=== PATIENT | female | born 1950 | race African-American/Black ===

== ENCOUNTER 2023-10-28 13:32 | Inpatient (IN) | payer OTHER ==
[2023-10-28 15:46] LABS: BASO % 0.7 % (0-2.0); EOS % 0.9 % (0-4.5); HEMATOCRIT 38.2 % (32.4-45.2); HEMOGLOBIN 12.8 GM/dL (10.7-15.3); LYMPH % 26.5 % (8-40); MCH 30.6 pg (25.7-33.7); MCHC 33.6 g/dl (32.0-36.0); MEAN CELL VOLUME 91.3 fl (80-96); MEAN PLT VOLUME 7.2 fl (7.5-11.1); MONO % 10.8 % (3.8-10.2); NEUT % 61.1 % (42.8-82.8); PLATELET COUNT 353 10^3/uL (134-434); RBC 4.19 M/mm3 (3.60-5.2); RDW 13.7 % (11.6-15.6); WHITE BLOOD COUNT 9.1 K/mm3 (4.0-10.0)
[2023-10-28 15:54] LABS: INR 1.08 (0.83-1.09); PROTHROMBIN TIME (PATIENT) 12.5 SEC (9.7-13.0)
[2023-10-28 15:57] LABS: ACTIVATED PTT 27.2 SECONDS (25.2-36.5)
[2023-10-28 16:08] LABS: POTASSIUM 4.1 mmol/L (3.5-5.1)
[2023-10-28 16:11] LABS: ALBUMIN 3.6 g/dl (3.4-5.0)
[2023-10-28 16:12] LABS: CALCIUM 10.4 mg/dL (8.5-10.1)
[2023-10-28 16:13] LABS: BLOOD UREA NITROGEN 23.6 mg/dL (7-18); MAGNESIUM 2.3 mg/dL (1.8-2.4)
[2023-10-28 16:16] LABS: CREATININE 0.8 mg/dL (0.55-1.3)
[2023-10-28 16:17] LABS: BILIRUBIN,TOTAL 0.4 mg/dL (0.2-1); TOT PROT 7.4 g/dl (6.4-8.2)
[2023-10-28] MEDS ORDERED: HALOPERIDOL LACTATE 5 MG/ML ONE (17:12)
[2023-10-28] MEDS: HALOPERIDOL LACTATE 5 MG/ML IM ONE (17:17)
[2023-10-28] MEDS: SODIUM CHLORIDE 1,000 ML IV STA (19:59)
[2023-10-28] MEDS: REMDESIVIR 200 MG in SODIUM CHLORIDE 250 ML IVPB ONE (20:00)
[2023-10-28] MEDS ORDERED: ACETAMINOPHEN 325 MG TABLET (FP) PO PRN (21:41)
[2023-10-28] MEDS ORDERED: MAGNESIUM HYDROX 2400MG/30ML ORAL SUSPENSION 30 ML CUP PO PRN (21:41)
[2023-10-28] MEDS: SODIUM CHLORIDE 1,000 ML IV SCH (22:07)
[2023-10-28] MEDS: MIRTAZAPINE 15 MG TABLET (FP) PO SCH (22:37)
[2023-10-28] MEDS: NAPH,MB-DB/K PH,MBDB POWDER PACKET PO SCH (22:37)
[2023-10-28] MEDS: risperiDONE 0.5 MG TABLET PO SCH (22:37)
[2023-10-28] MEDS: QUEtiapine FUMARATE 25 MG TABLET PO SCH (22:37)
[2023-10-29] MEDS: HALOPERIDOL LACTATE 5 MG/ML IM ONE (02:07)
[2023-10-29 03:15] LABS: URINE APPEARANCE CLEAR; URINE BILIRUBIN NEGATIVE (NEGATIVE); URINE COLOR YELLOW; URINE GLUCOSE (UA) NEGATIVE (NEGATIVE); URINE KETONE NEGATIVE (NEGATIVE); URINE LEUK ESTERASE NEGATIVE (NEGATIVE); URINE NITRITE NEGATIVE (NEGATIVE); URINE PROTEIN NEGATIVE (NEGATIVE)
[2023-10-29 06:33] LABS: BASO % 0.4 % (0-2.0); EOS % 1.3 % (0-4.5); HEMATOCRIT 36.8 % (32.4-45.2); HEMOGLOBIN 12.2 GM/dL (10.7-15.3); LYMPH % 24.5 % (8-40); MCH 30.7 pg (25.7-33.7); MCHC 33.1 g/dl (32.0-36.0); MEAN CELL VOLUME 92.9 fl (80-96); MEAN PLT VOLUME 7.6 fl (7.5-11.1); MONO % 7.9 % (3.8-10.2); NEUT % 65.9 % (42.8-82.8); PLATELET COUNT 302 10^3/uL (134-434); RBC 3.96 M/mm3 (3.60-5.2); RDW 13.6 % (11.6-15.6)
[2023-10-29 06:39] LABS: POTASSIUM 3.7 mmol/L (3.5-5.1)
[2023-10-29 06:42] LABS: ALBUMIN 3.4 g/dl (3.4-5.0); BLOOD UREA NITROGEN 15.7 mg/dL (7-18); MAGNESIUM 2.2 mg/dL (1.8-2.4)
[2023-10-29 06:45] LABS: CREATININE 0.6 mg/dL (0.55-1.3); PHOSPHOROUS 2.7 mg/dL (2.5-4.9)
[2023-10-29 06:46] LABS: BILIRUBIN,TOTAL 0.4 mg/dL (0.2-1)
[2023-10-29 06:47] LABS: TOT PROT 6.7 g/dl (6.4-8.2)
[2023-10-29 07:23] LABS: CALCIUM 8.6 mg/dL (8.5-10.1)
[2023-10-29] MEDS ORDERED: CHOLECALCIFEROL (VIT D3) 1,000 UNIT (25 MCG) TABLET PO SCH (10:00)
[2023-10-29] MEDS ORDERED: amLODIPine BESYLATE 10 MG TABLET (FP) PO SCH (10:00)
[2023-10-29] MEDS: ENOXAPARIN NA (PORCINE) 40 MG/0.4 ML DISP.SYRIN SQ SCH (11:12)
[2023-10-29] MEDS: CHOLECALCIFEROL (VIT D3) 1,000 UNIT (25 MCG) TABLET PO SCH (11:12)
[2023-10-29] MEDS ORDERED: ROSUVASTATIN CA 40 MG TABLET PO ONE (12:16)
[2023-10-29] MEDS ORDERED: ASPIRIN 81 MG CHEWABLE TABLETS ONE (14:35)
[2023-10-29] MEDS ORDERED: ROSUVASTATIN CA 20 MG TABLET ONE (14:35)
[2023-10-29] MEDS: ASPIRIN COATED 81 MG TABLET.EC PO SCH (14:36)
[2023-10-29] MEDS: ROSUVASTATIN CA 20 MG TABLET PO ONE (14:36)
[2023-10-29] MEDS ORDERED: ATORVASTATIN CA 40 MG TABLET (FP) PO ONE (15:10)
[2023-10-29] MEDS: amLODIPine BESYLATE 10 MG TABLET (FP) PO SCH (17:37)
[2023-10-29] MEDS: SODIUM CHLORIDE 1,000 ML IV SCH (19:00)
[2023-10-29] MEDS: ATORVASTATIN CA 40 MG TABLET (FP) PO ONE (19:01)
[2023-10-29] MEDS: HEPARIN NA (PORCINE) 5,000 UNITS/ML 1ML VIAL SQ SCH (22:36)
[2023-10-29] MEDS: QUEtiapine FUMARATE 25 MG TABLET PO SCH (22:37)
[2023-10-29] MEDS: MIRTAZAPINE 15 MG TABLET (FP) PO SCH (22:37)
[2023-10-29] MEDS: NAPH,MB-DB/K PH,MBDB POWDER PACKET PO SCH (22:41)
[2023-10-29] MEDS: risperiDONE 0.5 MG TABLET PO SCH (22:41)
[2023-10-30 08:32] LABS: BASO % 0.6 % (0-2.0); EOS % 2.2 % (0-4.5); HEMATOCRIT 40.4 % (32.4-45.2); LYMPH % 31.1 % (8-40); MCH 31.4 pg (25.7-33.7); MCHC 34.6 g/dl (32.0-36.0); MEAN CELL VOLUME 90.5 fl (80-96); MEAN PLT VOLUME 7.7 fl (7.5-11.1); MONO % 8.3 % (3.8-10.2); NEUT % 57.8 % (42.8-82.8); PLATELET COUNT 323 10^3/uL (134-434); RBC 4.47 M/mm3 (3.60-5.2); RDW 13.7 % (11.6-15.6)
[2023-10-30 08:39] LABS: POTASSIUM 3.7 mmol/L (3.5-5.1)
[2023-10-30 08:58] LABS: ALBUMIN 3.6 g/dl (3.4-5.0); MAGNESIUM 2.4 mg/dL (1.8-2.4)
[2023-10-30 09:02] LABS: CREATININE 0.6 mg/dL (0.55-1.3); PHOSPHOROUS 2.7 mg/dL (2.5-4.9)
[2023-10-30 09:03] LABS: TOT PROT 7.3 g/dl (6.4-8.2)
[2023-10-30 09:04] LABS: BILIRUBIN,TOTAL 0.6 mg/dL (0.2-1)
[2023-10-30] MEDS: ASPIRIN COATED 81 MG TABLET.EC PO SCH (09:25)
[2023-10-30] MEDS: amLODIPine BESYLATE 10 MG TABLET (FP) PO SCH (09:26)
[2023-10-30] MEDS: REMDESIVIR 100 MG in SODIUM CHLORIDE 250 ML IVPB SCH (09:26)
[2023-10-30] MEDS: CHOLECALCIFEROL (VIT D3) 1,000 UNIT (25 MCG) TABLET PO SCH (09:26)
[2023-10-30] MEDS ORDERED: REMDESIVIR 100 MG in SODIUM CHLORIDE 250 ML IVPB SCH (10:00)
[2023-10-31 08:01] LABS: POTASSIUM 3.9 mmol/L (3.5-5.1)
[2023-10-31 08:03] LABS: BLOOD UREA NITROGEN 19.2 mg/dL (7-18); MAGNESIUM 2.3 mg/dL (1.8-2.4)
[2023-10-31 08:04] LABS: ALBUMIN 3.6 g/dl (3.4-5.0)
[2023-10-31 08:06] LABS: CREATININE 0.7 mg/dL (0.55-1.3)
[2023-10-31 08:08] LABS: BILIRUBIN,TOTAL 0.4 mg/dL (0.2-1); TOT PROT 7.7 g/dl (6.4-8.2)
[2023-10-31 08:09] LABS: BASO % 0.3 % (0-2.0); HEMATOCRIT 39.7 % (32.4-45.2); HEMOGLOBIN 13.5 GM/dL (10.7-15.3); LYMPH % 20.3 % (8-40); MCH 31.1 pg (25.7-33.7); MCHC 34.1 g/dl (32.0-36.0); MEAN CELL VOLUME 91.2 fl (80-96); MONO % 8.9 % (3.8-10.2); NEUT % 69.5 % (42.8-82.8); PLATELET COUNT 365 10^3/uL (134-434); RBC 4.35 M/mm3 (3.60-5.2); RDW 13.6 % (11.6-15.6); WHITE BLOOD COUNT 10.8 K/mm3 (4.0-10.0)
[2023-10-31 08:14] LABS: CALCIUM 10.6 mg/dL (8.5-10.1)
[2023-10-31] MEDS: ACETAMINOPHEN 325 MG TABLET (FP) PO PRN (09:09)
[2023-10-31] MEDS ORDERED: INSULIN (NOVOLOG) ASPART 100 UNITS/ML 10ML VIAL ONE (19:42)
[2023-10-31] MEDS: SODIUM CHLORIDE 1,000 ML IV SCH (22:31)
[2023-10-31 23:18] VITALS: BMI 20.2
[2023-11-01 08:19] LABS: BASO % 0.4 % (0-2.0); EOS % 1.1 % (0-4.5); HEMATOCRIT 37.1 % (32.4-45.2); HEMOGLOBIN 12.8 GM/dL (10.7-15.3); LYMPH % 19.8 % (8-40); MCHC 34.4 g/dl (32.0-36.0); MEAN CELL VOLUME 90.3 fl (80-96); MEAN PLT VOLUME 8.1 fl (7.5-11.1); MONO % 9.1 % (3.8-10.2); NEUT % 69.6 % (42.8-82.8); PLATELET COUNT 351 10^3/uL (134-434); RBC 4.11 M/mm3 (3.60-5.2); RDW 13.7 % (11.6-15.6); WHITE BLOOD COUNT 13.1 K/mm3 (4.0-10.0)
[2023-11-01 08:31] LABS: POTASSIUM 4.2 mmol/L (3.5-5.1)
[2023-11-01 08:43] LABS: CALCIUM 9.7 mg/dL (8.5-10.1)
[2023-11-01 08:44] LABS: ALBUMIN 3.2 g/dl (3.4-5.0); BLOOD UREA NITROGEN 23.4 mg/dL (7-18); MAGNESIUM 2.3 mg/dL (1.8-2.4)
[2023-11-01 08:46] LABS: CREATININE 0.8 mg/dL (0.55-1.3)
[2023-11-01 08:48] LABS: TOT PROT 6.9 g/dl (6.4-8.2)
[2023-11-01 08:49] LABS: BILIRUBIN,TOTAL 0.3 mg/dL (0.2-1)
[2023-11-01] MEDS: MAGNESIUM HYDROX 2400MG/30ML ORAL SUSPENSION 30 ML CUP PO PRN (12:27)
[2023-11-01] MEDS: ATORVASTATIN CA 80 MG TABLET (FP) PO SCH (21:18)
[2023-11-02 07:35] LABS: BASO % 0.4 % (0-2.0); EOS % 0.3 % (0-4.5); HEMATOCRIT 41.6 % (32.4-45.2); HEMOGLOBIN 14.3 GM/dL (10.7-15.3); MCH 31.2 pg (25.7-33.7); MCHC 34.4 g/dl (32.0-36.0); MEAN CELL VOLUME 90.9 fl (80-96); MEAN PLT VOLUME 8.4 fl (7.5-11.1); MONO % 7.9 % (3.8-10.2); NEUT % 76.4 % (42.8-82.8); PLATELET COUNT 359 10^3/uL (134-434); RBC 4.58 M/mm3 (3.60-5.2); WHITE BLOOD COUNT 14.6 K/mm3 (4.0-10.0)
[2023-11-02 07:58] LABS: POTASSIUM 4.3 mmol/L (3.5-5.1)
[2023-11-02 08:10] LABS: CALCIUM 9.6 mg/dL (8.5-10.1)
[2023-11-02 08:11] LABS: ALBUMIN 3.8 g/dl (3.4-5.0); BLOOD UREA NITROGEN 21.3 mg/dL (7-18); MAGNESIUM 2.4 mg/dL (1.8-2.4)
[2023-11-02 08:14] LABS: CREATININE 0.7 mg/dL (0.55-1.3); PHOSPHOROUS 3.6 mg/dL (2.5-4.9); TOT PROT 7.8 g/dl (6.4-8.2)
[2023-11-02 08:15] LABS: BILIRUBIN,TOTAL 0.6 mg/dL (0.2-1)
[2023-11-02 17:31] VITALS: RESP 19
[2023-11-02 17:33] VITALS: BP 107/64; PULSE 105; TEMP 98.1
[2023-11-06 08:05] LABS: HOMOCYSTINE-PLASMA OR SERUM SEE FILE umol/L; METHYLMALONIC ACID- SEE FILE
== END 2023-11-02 17:27 | disposition home or self-care (01) | DRG 178 ==
LOC: JER 13:32 → JERBED 18:45 → OBSVTOIN 10-29 12:15 → J8W 10-29 15:17 → J4W 10-29 17:53
PROVIDERS: ADMIT Internal Medicine; ATTEND Nurse Practitioner Acute Care
PROC: XW033E5 Introduction of Remdesivir Anti-infective into Peripheral Vein, Percutaneous Approach, New Technology Group 5 (ICD-10-PCS; principal; 2023-10-28)
DX: U07.1 COVID-19 (principal); G93.49 Other encephalopathy; E83.39 Other disorders of phosphorus metabolism; I10 Essential (primary) hypertension; F25.9 Schizoaffective disorder, unspecified; D72.829 Elevated white blood cell count, unspecified; E83.52 Hypercalcemia; F03.90 Unspecified dementia, unspecified severity, without behavioral disturbance, psychotic disturbance, mood disturbance, and anxiety; F31.9 Bipolar disorder, unspecified; S00.12XA Contusion of left eyelid and periocular area, initial encounter; W18.30XA Fall on same level, unspecified, initial encounter; Y92.098 Other place in other non-institutional residence as the place of occurrence of the external cause
CPT/HCPCS: 0241U-QW; 36415; 70450-TC; 70551-TC; 71045-TC-FY; 72125-TC; 72170-TC-FY; 80053; 80061; 81003; 82136; 83735; 83918; 83970; 84100; 84439; 84443; 84484; 85025; 85610; 85730; 87040; 87086; 93005; 93010; 93306-TC; 93880-TC; 97116-GP; 99285-25; G0378; J0248; J1644

== ENCOUNTER 2023-11-21 11:24 | Emergency (ER) | payer OTHER ==
[2023-11-21 11:57] VITALS: BMI 20.3
[2023-11-21] MEDS ORDERED: DIPHTH,PERTUSS(ACELL),TET 0.5 ML DISP.SYRIN IM ONE (13:45)
[2023-11-21] MEDS: DIPHTH,PERTUSS(ACELL),TET 0.5 ML DISP.SYRIN IM ONE (14:15)
[2023-11-21 21:04] VITALS: BP 134/78; PULSE 78; RESP 19; TEMP 98.1
== END 2023-11-21 20:59 | disposition home or self-care (01) ==
LOC: JER 11:24
PROC: 0HQ0XZZ Repair Scalp Skin, External Approach (ICD-10-PCS; principal; 2023-11-21)
PROC: 3E0234Z Introduction of Serum, Toxoid and Vaccine into Muscle, Percutaneous Approach (ICD-10-PCS; 2023-11-21)
DX: S01.111A Laceration without foreign body of right eyelid and periocular area, initial encounter (principal); W19.XXXA Unspecified fall, initial encounter; Y93.01 Activity, walking, marching and hiking; Y92.129 Unspecified place in nursing home as the place of occurrence of the external cause
CPT/HCPCS: 12011-25; 70450-TC; 70486-TC; 72125-TC; 72170-TC-FY; 90471; 90715; 93005; 93010; 99285-25

== ENCOUNTER 2024-02-01 01:56 | Observation (INO) | payer OTHER ==
[2024-02-01] MEDS ORDERED: ACETAMINOPHEN 500 MG TABLET (FP) ONE (04:38)
[2024-02-01] MEDS: ACETAMINOPHEN 500 MG TABLET (FP) PO ONE (04:50)
[2024-02-01 05:56] LABS: BASO % 0.5 % (0-2.0); EOS % 2.5 % (0-4.5); HEMATOCRIT 38.8 % (32.4-45.2); HEMOGLOBIN 12.7 GM/dL (10.7-15.3); LYMPH % 33.7 % (8-40); MCH 30.1 pg (25.7-33.7); MCHC 32.7 g/dl (32.0-36.0); MEAN PLT VOLUME 8.7 fl (7.5-11.1); MONO % 7.5 % (3.8-10.2); NEUT % 55.8 % (42.8-82.8); RBC 4.21 M/mm3 (3.60-5.2); RDW 14.5 % (11.6-15.6); WHITE BLOOD COUNT 9.2 K/mm3 (4.0-10.0)
[2024-02-01 06:15] LABS: POTASSIUM 3.8 mmol/L (3.5-5.1)
[2024-02-01 06:17] LABS: CALCIUM 9.9 mg/dL (8.5-10.1)
[2024-02-01 06:18] LABS: ALBUMIN 3.4 g/dl (3.4-5.0); BLOOD UREA NITROGEN 11.7 mg/dL (7-18); INR 1.07 (0.83-1.09); MAGNESIUM 2.1 mg/dL (1.8-2.4); PROTHROMBIN TIME (PATIENT) 12.1 SEC (9.7-13.0)
[2024-02-01 06:21] LABS: ACTIVATED PTT 30.5 SECONDS (25.2-36.5); CREATININE 0.7 mg/dL (0.55-1.3)
[2024-02-01 06:22] LABS: TOT PROT 7.2 g/dl (6.4-8.2)
[2024-02-01 06:23] LABS: BILIRUBIN,TOTAL 0.5 mg/dL (0.2-1)
[2024-02-01 09:23] LABS: PLATELET COUNT 359 10^3/uL (134-434)
[2024-02-01 09:24] LABS: EPI CELLS 1 /uL (0-25.1); HYALINE CASTS 0 /uL (0-3.1); PH,URINE 7.5 (5.0-8.0); URINE APPEARANCE CLOUDY; URINE BACTERIA 3063 /uL (0-1359); URINE BILIRUBIN NEGATIVE (NEGATIVE); URINE COLOR YELLOW; URINE GLUCOSE (UA) NEGATIVE (NEGATIVE); URINE KETONE NEGATIVE (NEGATIVE); URINE LEUK ESTERASE 3+ (NEGATIVE); URINE NITRITE NEGATIVE (NEGATIVE); URINE PROTEIN NEGATIVE (NEGATIVE); URINE UROBILINOGEN 0.2 mg/dL (0.2-1.0); URINE WBC 217 /uL (0-25.8)
[2024-02-01] MEDS ORDERED: MAGNESIUM HYDROX 2400MG/30ML ORAL SUSPENSION 30 ML CUP PO PRN (09:26)
[2024-02-01] MEDS ORDERED: ACETAMINOPHEN 325 MG TABLET (FP) PO PRN (09:27)
[2024-02-01] MEDS ORDERED: LANOLIN (EMOLL) 30 GM TUBE TP SCH (10:00)
[2024-02-01] MEDS ORDERED: hydrOXYzine PAMOATE 25 MG CAPSULE (FP) PO PRN (10:13)
[2024-02-01] MEDS ORDERED: ASPIRIN COATED 81 MG TABLET.EC ONE (10:42)
[2024-02-01] MEDS ORDERED: ASCORBIC ACID 500 MG TABLET (FP) ONE (10:42)
[2024-02-01] MEDS ORDERED: hydrOXYzine PAMOATE 25 MG CAPSULE (FP) PO ONE (10:42)
[2024-02-01] MEDS ORDERED: amLODIPine BESYLATE 10 MG TABLET (FP) ONE (10:42)
[2024-02-01] MEDS ORDERED: CHOLECALCIFEROL (VIT D3) 1,000 UNIT (25 MCG) TABLET ONE (10:42)
[2024-02-01] MEDS ORDERED: MULTIVITAMINS (DAILY MVI) TABLET (FP) ONE (10:43)
[2024-02-01] MEDS ORDERED: ENOXAPARIN NA (PORCINE) 40 MG/0.4 ML DISP.SYRIN SQ ONE (10:43)
[2024-02-01] MEDS: ASCORBIC ACID 250 MG TABLET (FP) PO SCH (10:57)
[2024-02-01] MEDS: MEMANTINE HCL 10 MG TABLET (FP) PO SCH (10:57)
[2024-02-01] MEDS: ASPIRIN COATED 81 MG TABLET.EC PO SCH (10:57)
[2024-02-01] MEDS: CHOLECALCIFEROL (VIT D3) 1,000 UNIT (25 MCG) TABLET PO SCH (10:57)
[2024-02-01] MEDS: ENOXAPARIN NA (PORCINE) 40 MG/0.4 ML DISP.SYRIN SQ SCH (10:57)
[2024-02-01] MEDS: MULTIVITAMINS (DAILY MVI) TABLET (FP) PO SCH (10:57)
[2024-02-01] MEDS: amLODIPine BESYLATE 10 MG TABLET (FP) PO SCH (10:57)
[2024-02-01 12:15] LABS: URINE RBC 72.3 /uL (0-23.9)
[2024-02-01 17:22] VITALS: BMI 17.0
[2024-02-01] MEDS: ATORVASTATIN CA 40 MG TABLET (FP) PO SCH (21:30)
[2024-02-01] MEDS: traZODone HCL 50 MG TABLET (FP) PO SCH (21:30)
[2024-02-01] MEDS: MIRTAZAPINE 15 MG TABLET (FP) PO SCH (21:30)
[2024-02-01] MEDS: risperiDONE 1 MG TABLET PO SCH (21:30)
[2024-02-02 01:20] VITALS: BP 121/80; PULSE 90; RESP 20; TEMP 98.2
[2024-02-02] MEDS: VALPROIC ACID 250 MG CAPSULE PO SCH (03:40)
[2024-02-02 08:11] LABS: BASO % 0.4 % (0-2.0); EOS % 1.7 % (0-4.5); HEMOGLOBIN 12.3 GM/dL (10.7-15.3); LYMPH % 31.3 % (8-40); MCH 30.2 pg (25.7-33.7); MCHC 33.2 g/dl (32.0-36.0); MEAN CELL VOLUME 90.9 fl (80-96); MEAN PLT VOLUME 7.8 fl (7.5-11.1); MONO % 9.3 % (3.8-10.2); NEUT % 57.3 % (42.8-82.8); PLATELET COUNT 299 10^3/uL (134-434); RBC 4.06 M/mm3 (3.60-5.2); RDW 14.1 % (11.6-15.6); WHITE BLOOD COUNT 7.1 K/mm3 (4.0-10.0)
[2024-02-02 08:29] LABS: POTASSIUM 3.8 mmol/L (3.5-5.1)
[2024-02-02 08:45] LABS: ALBUMIN 3.2 g/dl (3.4-5.0); BLOOD UREA NITROGEN 19.7 mg/dL (7-18); CALCIUM 9.4 mg/dL (8.5-10.1); MAGNESIUM 2.3 mg/dL (1.8-2.4)
[2024-02-02 08:48] LABS: BILIRUBIN,TOTAL 0.6 mg/dL (0.2-1); CREATININE 0.7 mg/dL (0.55-1.3); PHOSPHOROUS 3.7 mg/dL (2.5-4.9)
[2024-02-02 08:49] LABS: TOT PROT 6.7 g/dl (6.4-8.2)
== END 2024-02-02 11:17 ==
LOC: JER 01:56 → JERBED 07:44 → J4W 13:36
PROVIDERS: ADMIT Internal Medicine; ATTEND Internal Medicine
DX: S09.90XA Unspecified injury of head, initial encounter (principal); F31.9 Bipolar disorder, unspecified; F03.90 Unspecified dementia, unspecified severity, without behavioral disturbance, psychotic disturbance, mood disturbance, and anxiety; W18.39XA Other fall on same level, initial encounter; Y93.89 Activity, other specified; Y92.008 Other place in unspecified non-institutional (private) residence as the place of occurrence of the external cause; I10 Essential (primary) hypertension; E78.00 Pure hypercholesterolemia, unspecified
CPT/HCPCS: 36415; 70450-TC; 71045-TC-FY; 72125-TC; 80053; 81003; 82962; 83735; 84100; 84443; 84484; 85025; 85610; 85730; 86850; 86900; 86901; 87086; 87186; 93005; 93010; 97116-GP; 97161-GP; 99285-25; G0378

== ENCOUNTER 2024-04-02 10:37 | Inpatient (IN) | payer OTHER ==
[2024-04-02] MEDS ORDERED: HALOPERIDOL LACTATE 5 MG/ML ONE (11:18)
[2024-04-02] MEDS: HALOPERIDOL LACTATE 5 MG/ML IM ONE (11:23)
[2024-04-02] MEDS ORDERED: LORazepam 1 MG TABLET ONE (13:19)
[2024-04-02] MEDS: LORazepam 2 MG TABLET PO ONE (13:20)
[2024-04-02 15:56] LABS: BASO % 0.6 % (0-2.0); EOS % 0.9 % (0-4.5); HEMATOCRIT 41.8 % (32.4-45.2); HEMOGLOBIN 14.1 GM/dL (10.7-15.3); LYMPH % 22.5 % (8-40); MCHC 33.9 g/dl (32.0-36.0); MEAN CELL VOLUME 88.6 fl (80-96); MEAN PLT VOLUME 7.5 fl (7.5-11.1); MONO % 8.2 % (3.8-10.2); NEUT % 67.8 % (42.8-82.8); PLATELET COUNT 433 10^3/uL (134-434); RBC 4.72 M/mm3 (3.60-5.2); WHITE BLOOD COUNT 10.5 K/mm3 (4.0-10.0)
[2024-04-02 16:18] LABS: POTASSIUM 4.3 mmol/L (3.5-5.1)
[2024-04-02 16:19] LABS: ALBUMIN 3.1 g/dl (3.4-5.0); CALCIUM 9.3 mg/dL (8.5-10.1)
[2024-04-02 16:21] LABS: BLOOD UREA NITROGEN 16.2 mg/dL (7-18)
[2024-04-02 16:23] LABS: CREATININE 0.7 mg/dL (0.55-1.3)
[2024-04-02 16:25] LABS: BILIRUBIN,TOTAL 0.5 mg/dL (0.2-1); TOT PROT 7.7 g/dl (6.4-8.2)
[2024-04-02] MEDS ORDERED: VANCOMYCIN 1 GRAM (PRE-DOCKED) 1,000 MG/250 ML BAG IVPB ONE (18:03)
[2024-04-02] MEDS ORDERED: PIPERACILLIN/TAZOB 4.5 GM 4.5 GM/100 ML BAG IVPB ONE (18:03)
[2024-04-02] MEDS: PIPERACILLIN/TAZOB 4.5 GM 4.5 GM in DEXTROSE 5%-WATER 100 ML IVPB ONE (18:11)
[2024-04-02] MEDS: VANCOMYCIN 1,000 MG in DEXTROSE 5%-WATER - 250 ML IVPB ONE (18:37)
[2024-04-02] MEDS: HALOPERIDOL LACTATE 5 MG/ML IVPUSH PRN (18:50)
[2024-04-02] MEDS ORDERED: VANCOMYCIN/WATER FOR INJ (PEG) 750 MG/150 ML BAG IVPB SCH (20:15)
[2024-04-02] MEDS ORDERED: PATIENT'S OWN MEDICATION (NON-FORMULARY) (Valproic Acid [Valproic Acid] 250 MG Capsule) PO SCH (22:00)
[2024-04-02] MEDS: DEXTROSE 5%-LACTATED RINGERS 1,000 ML IV SCH (22:07)
[2024-04-02] MEDS ORDERED: HEPARIN NA (PORCINE) 5,000 UNITS/ML 1ML VIAL ONE (22:34)
[2024-04-02] MEDS: traZODone HCL 50 MG TABLET (FP) PO SCH (22:39)
[2024-04-02] MEDS: VALPROIC ACID 250 MG CAPSULE PO SCH (22:39)
[2024-04-02] MEDS: HEPARIN NA (PORCINE) 5,000 UNITS/ML 1ML VIAL SQ SCH (22:40)
[2024-04-02] MEDS: ATORVASTATIN CA 40 MG TABLET (FP) PO SCH (22:40)
[2024-04-02] MEDS: MEMANTINE HCL 10 MG TABLET (FP) PO SCH (22:41)
[2024-04-02] MEDS: MIRTAZAPINE 15 MG TABLET (FP) PO SCH (22:41)
[2024-04-02] MEDS: risperiDONE 1 MG TABLET PO SCH (22:41)
[2024-04-03 07:18] LABS: BASO % 0.5 % (0-2.0); EOS % 0.2 % (0-4.5); HEMATOCRIT 44.1 % (32.4-45.2); HEMOGLOBIN 14.4 GM/dL (10.7-15.3); LYMPH % 10.1 % (8-40); MCH 29.5 pg (25.7-33.7); MCHC 32.6 g/dl (32.0-36.0); MEAN CELL VOLUME 90.3 fl (80-96); MEAN PLT VOLUME 7.7 fl (7.5-11.1); MONO % 7.2 % (3.8-10.2); PLATELET COUNT 453 10^3/uL (134-434); RBC 4.89 M/mm3 (3.60-5.2); RDW 13.8 % (11.6-15.6); WHITE BLOOD COUNT 12.9 K/mm3 (4.0-10.0)
[2024-04-03] MEDS ORDERED: PIPERACILLIN/TAZOB 3.375 GM 3.375 GM/50 ML BAG IVPB ONE ×4 (07:22→22:47)
[2024-04-03 07:23] LABS: CALCIUM 10.3 mg/dL (8.5-10.1); POTASSIUM 5.1 mmol/L (3.5-5.1)
[2024-04-03 07:25] LABS: BLOOD UREA NITROGEN 10.9 mg/dL (7-18)
[2024-04-03 07:28] LABS: CREATININE 0.8 mg/dL (0.55-1.3)
[2024-04-03] MEDS: PIPERACILLIN/TAZOB 3.375 GM 3.375 GM in DEXTROSE 5%-WATER - 50 ML IVPB SCH (07:31)
[2024-04-03] MEDS: amLODIPine BESYLATE 10 MG TABLET (FP) PO SCH (10:01)
[2024-04-03] MEDS: ASPIRIN COATED 81 MG TABLET.EC PO SCH (10:01)
[2024-04-03] MEDS ORDERED: HEPARIN NA (PORCINE) 5,000 UNITS/ML 1ML VIAL ONE ×2 (10:02→22:40)
[2024-04-03] MEDS: VANCOMYCIN/WATER FOR INJ (PEG) 750 MG/150 ML BAG IVPB SCH (20:10)
[2024-04-03] MEDS ORDERED: risperiDONE 0.5 MG TABLET ONE (22:39)
[2024-04-03] MEDS ORDERED: ATORVASTATIN CA 40 MG TABLET (FP) ONE (22:39)
[2024-04-03] MEDS ORDERED: traZODone HCL 50 MG TABLET (FP) ONE (22:40)
[2024-04-03] MEDS ORDERED: ACETAMINOPHEN INJECTION 100 ML IVPB ONE (22:40)
[2024-04-03] MEDS ORDERED: MIRTAZAPINE 15 MG TABLET (FP) ONE (22:40)
[2024-04-03] MEDS ORDERED: DIVALPROEX SODIUM 250 MG TABLET E.C. ONE (22:40)
[2024-04-03] MEDS: ACETAMINOPHEN 500 MG TABLET (FP) PO SCH (22:59)
[2024-04-04] MEDS: PIPERACILLIN/TAZOB 3.375 GM 3.375 GM in DEXTROSE 5%-WATER - 50 ML IVPB SCH (11:35)
[2024-04-04 12:32] LABS: BASO % 0.5 % (0-2.0); EOS % 1.9 % (0-4.5); HEMATOCRIT 38.2 % (32.4-45.2); HEMOGLOBIN 12.9 GM/dL (10.7-15.3); MCH 29.8 pg (25.7-33.7); MCHC 33.7 g/dl (32.0-36.0); MEAN CELL VOLUME 88.6 fl (80-96); MEAN PLT VOLUME 7.6 fl (7.5-11.1); MONO % 10.6 % (3.8-10.2); PLATELET COUNT 373 10^3/uL (134-434); RBC 4.31 M/mm3 (3.60-5.2); WHITE BLOOD COUNT 10.8 K/mm3 (4.0-10.0)
[2024-04-04] MEDS: MAGNESIUM 2GM/50ML STERILE WATER IVPB IVPB ONE (12:34)
[2024-04-04 15:58] VITALS: BMI 19.8
[2024-04-05 09:28] LABS: BASO % 0.4 % (0-2.0); EOS % 3.5 % (0-4.5); HEMOGLOBIN 12.5 GM/dL (10.7-15.3); LYMPH % 30.6 % (8-40); MCH 29.5 pg (25.7-33.7); MCHC 33.7 g/dl (32.0-36.0); MEAN CELL VOLUME 87.6 fl (80-96); MEAN PLT VOLUME 7.7 fl (7.5-11.1); MONO % 11.2 % (3.8-10.2); NEUT % 54.3 % (42.8-82.8); PLATELET COUNT 390 10^3/uL (134-434); RBC 4.22 M/mm3 (3.60-5.2); WHITE BLOOD COUNT 9.2 K/mm3 (4.0-10.0)
[2024-04-05 09:47] LABS: POTASSIUM 3.5 mmol/L (3.5-5.1)
[2024-04-05 09:51] LABS: BLOOD UREA NITROGEN 7.4 mg/dL (7-18); CALCIUM 8.8 mg/dL (8.5-10.1)
[2024-04-05 09:52] LABS: MAGNESIUM 1.9 mg/dL (1.8-2.4)
[2024-04-05 09:54] LABS: BILIRUBIN,TOTAL 0.3 mg/dL (0.2-1)
[2024-04-05 09:56] LABS: CREATININE 0.5 mg/dL (0.55-1.3)
[2024-04-05 10:02] LABS: ALBUMIN 2.4 g/dl (3.4-5.0)
[2024-04-05] MEDS: MULTIVITAMINS (DAILY MVI) TABLET (FP) PO SCH (11:21)
[2024-04-05] MEDS: POTASSIUM CHLORIDE ORAL LIQUID 20 MEQ/15 ML NGT ONE (11:26)
[2024-04-05] MEDS: VANCOMYCIN 750 MG in DEXTROSE 5%-WATER - 150 ML IVPB SCH (11:28)
[2024-04-05 16:06] LABS: BF WBC & OTHER NUCLEATED CELLS 1800 /mm3
[2024-04-06 11:41] LABS: BODY FLUID MESOTHELIAL 16 %; BODY FLUID MONOCYTE 29 %
[2024-04-06 12:43] LABS: BASO % 0.5 % (0-2.0); EOS % 0.8 % (0-4.5); HEMATOCRIT 37.6 % (32.4-45.2); HEMOGLOBIN 12.4 GM/dL (10.7-15.3); LYMPH % 11.7 % (8-40); MCH 29.5 pg (25.7-33.7); MEAN CELL VOLUME 89.4 fl (80-96); MEAN PLT VOLUME 7.5 fl (7.5-11.1); MONO % 9.4 % (3.8-10.2); NEUT % 77.6 % (42.8-82.8); PLATELET COUNT 391 10^3/uL (134-434); RBC 4.21 M/mm3 (3.60-5.2); RDW 13.9 % (11.6-15.6)
[2024-04-06 13:06] LABS: POTASSIUM 3.5 mmol/L (3.5-5.1)
[2024-04-06 13:08] LABS: CALCIUM 9.2 mg/dL (8.5-10.1)
[2024-04-06 13:09] LABS: ALBUMIN 2.6 g/dl (3.4-5.0); BLOOD UREA NITROGEN 8.5 mg/dL (7-18); MAGNESIUM 1.8 mg/dL (1.8-2.4)
[2024-04-06 13:14] LABS: BILIRUBIN,TOTAL 0.4 mg/dL (0.2-1); TOT PROT 6.3 g/dl (6.4-8.2)
[2024-04-06 13:18] LABS: CREATININE 0.7 mg/dL (0.55-1.3)
[2024-04-07 08:12] LABS: BASO % 0.5 % (0-2.0); EOS % 3.1 % (0-4.5); HEMATOCRIT 38.5 % (32.4-45.2); LYMPH % 19.9 % (8-40); MCH 30.1 pg (25.7-33.7); MCHC 33.9 g/dl (32.0-36.0); MEAN CELL VOLUME 88.8 fl (80-96); MEAN PLT VOLUME 7.8 fl (7.5-11.1); MONO % 11.1 % (3.8-10.2); NEUT % 65.4 % (42.8-82.8); PLATELET COUNT 362 10^3/uL (134-434); RBC 4.33 M/mm3 (3.60-5.2); RDW 13.9 % (11.6-15.6); WHITE BLOOD COUNT 11.7 K/mm3 (4.0-10.0)
[2024-04-07 08:21] LABS: POTASSIUM 3.6 mmol/L (3.5-5.1)
[2024-04-07 08:26] LABS: ALBUMIN 2.8 g/dl (3.4-5.0); CALCIUM 9.7 mg/dL (8.5-10.1); MAGNESIUM 2.1 mg/dL (1.8-2.4)
[2024-04-07 08:27] LABS: BLOOD UREA NITROGEN 13.4 mg/dL (7-18)
[2024-04-07 08:29] LABS: CREATININE 0.6 mg/dL (0.55-1.3)
[2024-04-07 08:31] LABS: BILIRUBIN,TOTAL 0.5 mg/dL (0.2-1); TOT PROT 6.7 g/dl (6.4-8.2)
[2024-04-07 15:11] LABS: BODY FLUID ALBUMIN 2.6 g/dL (Not Estab.)
[2024-04-08 07:46] LABS: BASO % 0.8 % (0-2.0); EOS % 3.7 % (0-4.5); HEMATOCRIT 37.6 % (32.4-45.2); HEMOGLOBIN 12.8 GM/dL (10.7-15.3); LYMPH % 23.9 % (8-40); MCH 30.2 pg (25.7-33.7); MCHC 33.9 g/dl (32.0-36.0); MEAN PLT VOLUME 7.9 fl (7.5-11.1); MONO % 11.5 % (3.8-10.2); NEUT % 60.1 % (42.8-82.8); PLATELET COUNT 378 10^3/uL (134-434); RBC 4.23 M/mm3 (3.60-5.2); RDW 13.9 % (11.6-15.6); WHITE BLOOD COUNT 10.6 K/mm3 (4.0-10.0)
[2024-04-08 08:04] LABS: POTASSIUM 3.7 mmol/L (3.5-5.1)
[2024-04-08 08:10] LABS: ALBUMIN 2.5 g/dl (3.4-5.0); BLOOD UREA NITROGEN 18.8 mg/dL (7-18); CALCIUM 9.4 mg/dL (8.5-10.1); MAGNESIUM 2.2 mg/dL (1.8-2.4)
[2024-04-08 08:14] LABS: CREATININE 0.7 mg/dL (0.55-1.3)
[2024-04-08 08:16] LABS: BILIRUBIN,TOTAL 0.3 mg/dL (0.2-1); TOT PROT 6.4 g/dl (6.4-8.2)
[2024-04-09 08:32] LABS: POTASSIUM 3.9 mmol/L (3.5-5.1)
[2024-04-09 08:33] LABS: BASO % 0.3 % (0-2.0); EOS % 4.1 % (0-4.5); HEMATOCRIT 38.8 % (32.4-45.2); HEMOGLOBIN 13.5 GM/dL (10.7-15.3); LYMPH % 22.2 % (8-40); MCH 30.3 pg (25.7-33.7); MCHC 34.9 g/dl (32.0-36.0); MEAN CELL VOLUME 86.9 fl (80-96); MEAN PLT VOLUME 7.5 fl (7.5-11.1); NEUT % 64.4 % (42.8-82.8); PLATELET COUNT 468 10^3/uL (134-434); RBC 4.47 M/mm3 (3.60-5.2); RDW 14.2 % (11.6-15.6); WHITE BLOOD COUNT 9.6 K/mm3 (4.0-10.0)
[2024-04-09 08:37] LABS: ALBUMIN 2.7 g/dl (3.4-5.0); CALCIUM 9.7 mg/dL (8.5-10.1)
[2024-04-09 08:38] LABS: BLOOD UREA NITROGEN 20.2 mg/dL (7-18); MAGNESIUM 2.2 mg/dL (1.8-2.4)
[2024-04-09 08:41] LABS: CREATININE 0.7 mg/dL (0.55-1.3)
[2024-04-09 08:42] LABS: BILIRUBIN,TOTAL 0.3 mg/dL (0.2-1); TOT PROT 6.7 g/dl (6.4-8.2)
[2024-04-10 09:00] LABS: BASO % 0.4 % (0-2.0); EOS % 4.9 % (0-4.5); HEMATOCRIT 37.7 % (32.4-45.2); HEMOGLOBIN 12.5 GM/dL (10.7-15.3); LYMPH % 23.1 % (8-40); MCH 29.1 pg (25.7-33.7); MCHC 33.2 g/dl (32.0-36.0); MEAN CELL VOLUME 87.7 fl (80-96); MEAN PLT VOLUME 7.7 fl (7.5-11.1); MONO % 7.6 % (3.8-10.2); PLATELET COUNT 429 10^3/uL (134-434); RDW 14.1 % (11.6-15.6); WHITE BLOOD COUNT 9.2 K/mm3 (4.0-10.0)
[2024-04-10 09:29] LABS: CALCIUM 9.3 mg/dL (8.5-10.1)
[2024-04-10 09:30] LABS: ALBUMIN 2.4 g/dl (3.4-5.0); BLOOD UREA NITROGEN 20.4 mg/dL (7-18); MAGNESIUM 2.1 mg/dL (1.8-2.4)
[2024-04-10 09:33] LABS: CREATININE 0.6 mg/dL (0.55-1.3)
[2024-04-10 09:34] LABS: BILIRUBIN,TOTAL 0.3 mg/dL (0.2-1); TOT PROT 6.5 g/dl (6.4-8.2)
[2024-04-11 09:36] LABS: BASO % 0.4 % (0-2.0); EOS % 2.5 % (0-4.5); HEMATOCRIT 38.8 % (32.4-45.2); HEMOGLOBIN 13.1 GM/dL (10.7-15.3); LYMPH % 22.6 % (8-40); MCH 29.9 pg (25.7-33.7); MCHC 33.7 g/dl (32.0-36.0); MEAN CELL VOLUME 88.6 fl (80-96); MEAN PLT VOLUME 7.7 fl (7.5-11.1); MONO % 7.4 % (3.8-10.2); NEUT % 67.1 % (42.8-82.8); PLATELET COUNT 454 10^3/uL (134-434); RBC 4.37 M/mm3 (3.60-5.2); RDW 13.8 % (11.6-15.6)
[2024-04-11 09:48] LABS: POTASSIUM 4.1 mmol/L (3.5-5.1)
[2024-04-11 09:55] LABS: ALBUMIN 2.9 g/dl (3.4-5.0); BLOOD UREA NITROGEN 18.7 mg/dL (7-18)
[2024-04-11 09:59] LABS: CREATININE 0.6 mg/dL (0.55-1.3)
[2024-04-11 10:00] LABS: BILIRUBIN,TOTAL 0.4 mg/dL (0.2-1)
[2024-04-13] MEDS: ENOXAPARIN NA (PORCINE) 40 MG/0.4 ML DISP.SYRIN SQ SCH (10:27)
[2024-04-13] MEDS ORDERED: LIDOCAINE HCL 1%, 10 MG/ML (20ML VIAL) ONE (13:51)
[2024-04-13] MEDS: LIDOCAINE HCL 1%, 10 MG/ML (20ML VIAL) INF ONE (18:47)
[2024-04-15 06:36] VITALS: RESP 19
[2024-04-15 14:44] VITALS: BP 129/76; PULSE 69; TEMP 98.1
== END 2024-04-15 14:34 | DRG 597 ==
LOC: JER 10:37 → JERBED 17:32 → J8W 04-03 23:26
PROVIDERS: ADMIT Internal Medicine; ATTEND Nurse Practitioner Family
PROC: 0W9B00Z Drainage of Left Pleural Cavity with Drainage Device, Open Approach (ICD-10-PCS; principal; 2024-04-05)
PROC: 0HBU3ZX Excision of Left Breast, Percutaneous Approach, Diagnostic (ICD-10-PCS; 2024-04-13)
DX: C50.912 Malignant neoplasm of unspecified site of left female breast (principal); G93.41 Metabolic encephalopathy; J90 Pleural effusion, not elsewhere classified; Z68.1 Body mass index [BMI] 19.9 or less, adult; E44.0 Moderate protein-calorie malnutrition; F03.90 Unspecified dementia, unspecified severity, without behavioral disturbance, psychotic disturbance, mood disturbance, and anxiety; I10 Essential (primary) hypertension; E78.5 Hyperlipidemia, unspecified; F31.9 Bipolar disorder, unspecified; K21.9 Gastro-esophageal reflux disease without esophagitis; R53.83 Other fatigue
CPT/HCPCS: 32557; 36415; 70450-TC; 71045-TC-FY; 71046-TC-FY; 71260-TC; 72125-TC; 80048; 80053; 82042; 82150; 82465; 83615; 83735; 83986; 84157; 84478; 84484; 85025; 86140; 86301; 86304; 87070; 87075; 87102; 87116; 87186; 87205; 87206; 87210; 87635; 88108; 88305-TC; 93005; 93010; 97116-GP; 97161-GP; 99285-25; J1644

== ENCOUNTER 2024-05-10 16:09 | Inpatient (IN) | payer OTHER ==
[2024-05-10] MEDS ORDERED: ACETAMINOPHEN INJECTION 100 ML IVPB ONE (17:29)
[2024-05-10 17:35] LABS: BASO % 0.4 % (0-2.0); EOS % 0.1 % (0-4.5); HEMATOCRIT 45.5 % (32.4-45.2); HEMOGLOBIN 14.8 GM/dL (10.7-15.3); LYMPH % 10.1 % (8-40); MCH 29.2 pg (25.7-33.7); MCHC 32.4 g/dl (32.0-36.0); MEAN CELL VOLUME 89.9 fl (80-96); MONO % 7.1 % (3.8-10.2); NEUT % 82.3 % (42.8-82.8); PLATELET COUNT 271 10^3/uL (134-434); RBC 5.06 M/mm3 (3.60-5.2); RDW 14.5 % (11.6-15.6)
[2024-05-10] MEDS: ACETAMINOPHEN 1000 MG/100 ML BAG IVPB ONE (17:48)
[2024-05-10] MEDS: LACTATED RINGERS SOLUTION 1000 ML INFUS.BAG IV ONE ×2 (17:50→19:26)
[2024-05-10 17:53] LABS: POTASSIUM 4.3 mmol/L (3.5-5.1)
[2024-05-10 17:55] LABS: BLOOD UREA NITROGEN 71.5 mg/dL (7-18); CALCIUM 10.2 mg/dL (8.5-10.1)
[2024-05-10 17:56] LABS: MAGNESIUM 2.8 mg/dL (1.8-2.4)
[2024-05-10 17:59] LABS: CREATININE 1.7 mg/dL (0.55-1.3); PHOSPHOROUS 3.8 mg/dL (2.5-4.9)
[2024-05-10 18:00] LABS: BILIRUBIN,TOTAL 0.7 mg/dL (0.2-1); TOT PROT 8.1 g/dl (6.4-8.2)
[2024-05-10 18:08] LABS: ANISOCYTOSIS 1+; MACROCYTOSIS 0; TEAR DROP CELLS 1+
[2024-05-10] MEDS ORDERED: CEFTRIAXONE 1 GM/50 ML BAG ONE (18:43)
[2024-05-10] MEDS: SODIUM CHLORIDE 0.45% 1,000 ML IV SCH (19:00)
[2024-05-10] MEDS: PIPERACILLIN/TAZOB 2.25 GM 2.25 GM in DEXTROSE 5%-WATER - 50 ML IVPB ONE (19:29)
[2024-05-10] MEDS ORDERED: PIPERACILLIN/TAZOB 2.25 GM 2.25 GM/50 ML BAG IVPB ONE (19:30)
[2024-05-10] MEDS ORDERED: VANCOMYCIN/WATER 1250 MG 1,250 MG/250 ML BAG IVPB ONE (20:36)
[2024-05-10] MEDS: VANCOMYCIN/WATER 1250 MG 1,250 MG/250 ML BAG IVPB ONE (20:50)
[2024-05-10] MEDS ORDERED: MAGNESIUM HYDROX 2400MG/30ML ORAL SUSPENSION 30 ML CUP PO PRN (23:38)
[2024-05-10] MEDS ORDERED: ACETAMINOPHEN 325 MG TABLET (FP) PO PRN (23:38)
[2024-05-10 23:54] LABS: HEMATOCRIT 36.8 % (32.4-45.2); MCHC 32.6 g/dl (32.0-36.0); MEAN CELL VOLUME 88.8 fl (80-96); MEAN PLT VOLUME 8.9 fl (7.5-11.1); PLATELET COUNT 239 10^3/uL (134-434); RBC 4.14 M/mm3 (3.60-5.2); RDW 14.2 % (11.6-15.6); WHITE BLOOD COUNT 20.2 K/mm3 (4.0-10.0)
[2024-05-11 00:13] LABS: MAGNESIUM 2.3 mg/dL (1.8-2.4)
[2024-05-11 00:17] LABS: PHOSPHOROUS 2.5 mg/dL (2.5-4.9)
[2024-05-11] MEDS ORDERED: ACETAMINOPHEN 325 MG TABLET (FP) PO PRN (00:54)
[2024-05-11] MEDS: HEPARIN NA (PORCINE) 5,000 UNITS/ML 1ML VIAL SQ SCH (01:20)
[2024-05-11 04:07] VITALS: BMI 14.7
[2024-05-11] MEDS: PIPERACILLIN/TAZOB 2.25 GM 2.25 GM in DEXTROSE 5%-WATER - 50 ML IVPB SCH ×3 (07:59→23:19)
[2024-05-11 08:13] LABS: EPI CELLS 2 /uL (0-25.1); HYALINE CASTS 2 /uL (0-3.1); URINE APPEARANCE CLOUDY; URINE BACTERIA 49 /uL (0-1359); URINE BILIRUBIN NEGATIVE (NEGATIVE); URINE COLOR YELLOW; URINE GLUCOSE (UA) NEGATIVE (NEGATIVE); URINE KETONE TRACE (NEGATIVE); URINE LEUK ESTERASE 2+ (NEGATIVE); URINE NITRITE NEGATIVE (NEGATIVE); URINE PROTEIN 1+ (NEGATIVE); URINE UROBILINOGEN 0.2 mg/dL (0.2-1.0); URINE WBC 788 /uL (0-25.8)
[2024-05-11 08:31] LABS: URINE RBC 79 /uL (0-23.9)
[2024-05-11] MEDS: ASPIRIN COATED 81 MG TABLET.EC PO SCH (09:48)
[2024-05-11] MEDS: MEMANTINE HCL 10 MG TABLET (FP) PO SCH (09:49)
[2024-05-11] MEDS: MULTIVITAMINS (DAILY MVI) TABLET (FP) PO SCH (09:50)
[2024-05-11] MEDS: ASCORBIC ACID 500 MG TABLET (FP) PO SCH (09:50)
[2024-05-11] MEDS: CHOLECALCIFEROL (VIT D3) 1,000 UNIT (25 MCG) TABLET PO SCH (09:50)
[2024-05-11] MEDS ORDERED: SILVER TP SCH (10:00)
[2024-05-11] MEDS ORDERED: [UNRECOGNIZED DRUG - OTHER] TP SCH (10:00)
[2024-05-11] MEDS ORDERED: CALCIUM ALGINATE TP SCH (10:00)
[2024-05-11 10:12] LABS: HEMATOCRIT 39.3 % (32.4-45.2); HEMOGLOBIN 13.1 GM/dL (10.7-15.3); MCH 29.5 pg (25.7-33.7); MCHC 33.2 g/dl (32.0-36.0); MEAN CELL VOLUME 88.9 fl (80-96); MEAN PLT VOLUME 9.6 fl (7.5-11.1); PLATELET COUNT 230 10^3/uL (134-434); RBC 4.42 M/mm3 (3.60-5.2); RDW 14.4 % (11.6-15.6); WHITE BLOOD COUNT 15.4 K/mm3 (4.0-10.0)
[2024-05-11 10:31] LABS: POTASSIUM 3.6 mmol/L (3.5-5.1)
[2024-05-11 10:37] LABS: ALBUMIN 2.5 g/dl (3.4-5.0); BLOOD UREA NITROGEN 52.3 mg/dL (7-18); CALCIUM 9.2 mg/dL (8.5-10.1); MAGNESIUM 2.4 mg/dL (1.8-2.4)
[2024-05-11 10:40] LABS: CREATININE 0.9 mg/dL (0.55-1.3); PHOSPHOROUS 2.3 mg/dL (2.5-4.9)
[2024-05-11 10:42] LABS: BILIRUBIN,TOTAL 0.8 mg/dL (0.2-1); TOT PROT 6.5 g/dl (6.4-8.2)
[2024-05-11 11:08] LABS: PLATELET ESTIMATE ADEQUATE
[2024-05-11] MEDS: VANCOMYCIN 1,000 MG in DEXTROSE 5%-WATER - 250 ML IVPB SCH (12:22)
[2024-05-11] MEDS: SODIUM CHLORIDE 0.45% 1,000 ML IV SCH (14:16)
[2024-05-11] MEDS: AMINO ACIDS 4.25%/D5W 1,000 ML IV SCH (18:17)
[2024-05-11] MEDS: POTASSIUM CHLORIDE 10 MEQ in AMINO ACIDS 4.25%/D5W 1,000 ML IV SCH (19:30)
[2024-05-11] MEDS ORDERED: SODIUM CHLORIDE 0.45% 1,000 ML IV SCH (19:46)
[2024-05-11] MEDS: LATANOPROST 0.005% OPHTH SOLN 2.5ML BOTTLE OU SCH (22:00)
[2024-05-12] MEDS: VALPROIC ACID 250 MG CAPSULE PO SCH (00:49)
[2024-05-12] MEDS: traZODone HCL 50 MG TABLET (FP) PO SCH (00:50)
[2024-05-12] MEDS: MIRTAZAPINE 15 MG TABLET (FP) PO SCH (00:50)
[2024-05-12] MEDS: risperiDONE 0.5 MG TABLET PO SCH (00:50)
[2024-05-12] MEDS: ATORVASTATIN CA 40 MG TABLET (FP) PO SCH (00:50)
[2024-05-12] MEDS ORDERED: PIPERACILLIN/TAZOB 2.25 GM 2.25 GM in DEXTROSE 5%-WATER - 50 ML IVPB SCH (03:00)
[2024-05-12 07:47] VITALS: RESP 18
[2024-05-12 10:14] LABS: CHLORIDE 121 mmol/L (98-107); SODIUM 151 mmol/L (136-145)
[2024-05-12 10:22] LABS: ALBUMIN 2.3 g/dl (3.4-5.0); BLOOD UREA NITROGEN 33.3 mg/dL (7-18); CALCIUM 9.2 mg/dL (8.5-10.1); GLUCOSE,RANDOM 112 mg/dL (74-106)
[2024-05-12 10:23] LABS: CO2 23 mmol/L (21-32)
[2024-05-12 10:26] LABS: CREATININE 0.8 mg/dL (0.55-1.3); SGOT/AST 23 U/L (15-37); SGPT/ALT 14 U/L (13-61)
[2024-05-12 10:27] LABS: BILIRUBIN,TOTAL 0.5 mg/dL (0.2-1); TOT PROT 6.1 g/dl (6.4-8.2)
[2024-05-12 10:28] LABS: ALK PHOS 67 U/L (45-117); ANION GAP 7 mmol/L (4-13); POTASSIUM 2.9 mmol/L (3.5-5.1)
[2024-05-12] MEDS: POTASSIUM CHLORIDE TABS 20 MEQ TABLET.ER (FP) PO SCH (11:31)
[2024-05-12] MEDS: DEXTROSE 5%-WATER - 1,000 ML IV SCH (15:20)
[2024-05-12] MEDS: AMINO ACIDS/PROTEIN HYDROLYS 30 ML LIQUID.PKT PO SCH (17:48)
[2024-05-13 09:21] LABS: HEMATOCRIT 35.4 % (32.4-45.2); HEMOGLOBIN 11.6 GM/dL (10.7-15.3); MCH 29.3 pg (25.7-33.7); MCHC 32.7 g/dl (32.0-36.0); MEAN CELL VOLUME 89.6 fl (80-96); MEAN PLT VOLUME 9.8 fl (7.5-11.1); PLATELET COUNT 237 10^3/uL (134-434); RBC 3.95 M/mm3 (3.60-5.2); RDW 14.2 % (11.6-15.6); WHITE BLOOD COUNT 14.9 K/mm3 (4.0-10.0)
[2024-05-13 09:48] LABS: POTASSIUM 3.4 mmol/L (3.5-5.1)
[2024-05-13 10:05] LABS: ALBUMIN 2.4 g/dl (3.4-5.0); BLOOD UREA NITROGEN 28.9 mg/dL (7-18); CALCIUM 8.9 mg/dL (8.5-10.1); MAGNESIUM 1.8 mg/dL (1.8-2.4)
[2024-05-13 10:07] LABS: ANISOCYTOSIS 0; MACROCYTOSIS 0
[2024-05-13 10:08] LABS: PLATELET ESTIMATE ADEQUATE
[2024-05-13 10:09] LABS: CREATININE 0.6 mg/dL (0.55-1.3)
[2024-05-13 10:10] LABS: BILIRUBIN,TOTAL 0.6 mg/dL (0.2-1); TOT PROT 6.3 g/dl (6.4-8.2)
[2024-05-13] MEDS: KCL 10 MEQ IVPB 10 MEQ/100 ML INFUS.BAG IVPB SCH (11:59)
[2024-05-14 08:00] LABS: BASO % 0.5 % (0-2.0); EOS % 1.4 % (0-4.5); HEMATOCRIT 35.9 % (32.4-45.2); HEMOGLOBIN 11.7 GM/dL (10.7-15.3); LYMPH % 11.1 % (8-40); MCHC 32.6 g/dl (32.0-36.0); MEAN CELL VOLUME 89.1 fl (80-96); MONO % 3.9 % (3.8-10.2); NEUT % 83.1 % (42.8-82.8); PLATELET COUNT 237 10^3/uL (134-434); RBC 4.03 M/mm3 (3.60-5.2); RDW 13.6 % (11.6-15.6); WHITE BLOOD COUNT 17.9 K/mm3 (4.0-10.0)
[2024-05-14 08:16] LABS: POTASSIUM 3.5 mmol/L (3.5-5.1)
[2024-05-14 08:18] LABS: ALBUMIN 2.3 g/dl (3.4-5.0); BLOOD UREA NITROGEN 19.4 mg/dL (7-18); CALCIUM 8.8 mg/dL (8.5-10.1); MAGNESIUM 1.6 mg/dL (1.8-2.4)
[2024-05-14 08:22] LABS: CREATININE 0.6 mg/dL (0.55-1.3)
[2024-05-14 08:23] LABS: BILIRUBIN,TOTAL 0.4 mg/dL (0.2-1); TOT PROT 6.2 g/dl (6.4-8.2)
[2024-05-15 08:41] LABS: POTASSIUM 3.4 mmol/L (3.5-5.1)
[2024-05-15 08:44] LABS: ALBUMIN 2.2 g/dl (3.4-5.0); BLOOD UREA NITROGEN 12.6 mg/dL (7-18); CALCIUM 8.7 mg/dL (8.5-10.1)
[2024-05-15 08:44] LABS: BASO % 0.4 % (0-2.0); EOS % 2.4 % (0-4.5); HEMATOCRIT 33.4 % (32.4-45.2); LYMPH % 18.2 % (8-40); MCH 29.4 pg (25.7-33.7); MEAN PLT VOLUME 9.3 fl (7.5-11.1); MONO % 6.6 % (3.8-10.2); NEUT % 72.4 % (42.8-82.8); PLATELET COUNT 252 10^3/uL (134-434); RBC 3.75 M/mm3 (3.60-5.2); RDW 13.8 % (11.6-15.6); WHITE BLOOD COUNT 13.8 K/mm3 (4.0-10.0)
[2024-05-15 08:47] LABS: CREATININE 0.5 mg/dL (0.55-1.3)
[2024-05-15 08:48] LABS: BILIRUBIN,TOTAL 0.4 mg/dL (0.2-1)
[2024-05-15 08:49] LABS: MAGNESIUM 1.6 mg/dL (1.8-2.4); TOT PROT 5.9 g/dl (6.4-8.2)
[2024-05-15] MEDS: MAGNESIUM 1GM/D5W - 1 GM/100 ML IVPB IVPB ONE (13:35)
[2024-05-15] MEDS: POTASSIUM CHLORIDE TABS 20 MEQ TABLET.ER (FP) PO SCH (15:17)
[2024-05-15] MEDS: POTASSIUM PHOSPHATE 15 MM in SODIUM CHLORIDE 250 ML IVPB ONE (15:18)
[2024-05-15] MEDS: ACETAMINOPHEN 1000 MG/100 ML BAG IVPB PRN (17:13)
[2024-05-15 19:18] VITALS: BP 92/58; PULSE 97; TEMP 97.5
== END 2024-05-15 21:17 | DRG 871 ==
LOC: JER 16:09 → JERBED 19:26 → J8W 05-11 00:54
PROVIDERS: ADMIT Internal Medicine; ATTEND Internal Medicine
DX: A41.89 Other specified sepsis (principal); E43 Unspecified severe protein-calorie malnutrition; E87.0 Hyperosmolality and hypernatremia; N39.0 Urinary tract infection, site not specified; N17.9 Acute kidney failure, unspecified; J90 Pleural effusion, not elsewhere classified; R64 Cachexia; Z68.1 Body mass index [BMI] 19.9 or less, adult; C50.919 Malignant neoplasm of unspecified site of unspecified female breast; R62.7 Adult failure to thrive; F31.9 Bipolar disorder, unspecified; F03.90 Unspecified dementia, unspecified severity, without behavioral disturbance, psychotic disturbance, mood disturbance, and anxiety; L89.152 Pressure ulcer of sacral region, stage 2; L89.616 Pressure-induced deep tissue damage of right heel
CPT/HCPCS: 0241U-QW; 36415; 70450-TC; 71045-TC-FY; 74176-TC; 76775-TC; 80048; 80053; 81003; 82550; 82553; 82962; 83605; 83735; 84100; 84484; 85025; 85027; 87040; 87086; 93005; 93010; 99285-25; J0131; J1644

== ENCOUNTER 2024-06-06 12:21 | Inpatient (IN) | payer OTHER ==
[2024-06-06 14:59] LABS: HEMATOCRIT 38.2 % (32.4-45.2); HEMOGLOBIN 12.5 GM/dL (10.7-15.3); MCH 28.7 pg (25.7-33.7); MCHC 32.8 g/dl (32.0-36.0); MEAN CELL VOLUME 87.4 fl (80-96); PLATELET COUNT 511 10^3/uL (134-434); RBC 4.37 M/mm3 (3.60-5.2); WHITE BLOOD COUNT 12.7 K/mm3 (4.0-10.0)
[2024-06-06 15:12] LABS: POTASSIUM 3.7 mmol/L (3.5-5.1)
[2024-06-06 15:14] LABS: CALCIUM 10.2 mg/dL (8.5-10.1)
[2024-06-06 15:15] LABS: ALBUMIN 2.7 g/dl (3.4-5.0); BLOOD UREA NITROGEN 12.9 mg/dL (7-18)
[2024-06-06 15:19] LABS: BILIRUBIN,TOTAL 0.8 mg/dL (0.2-1); CREATININE 0.6 mg/dL (0.55-1.3); TOT PROT 7.8 g/dl (6.4-8.2)
[2024-06-06] MEDS: SODIUM CHLORIDE 1,000 ML IV STA (15:24)
[2024-06-06 17:07] LABS: POTASSIUM 3.7 mmol/L (3.5-5.1)
[2024-06-06 17:11] LABS: BLOOD UREA NITROGEN 13.5 mg/dL (7-18)
[2024-06-06 17:14] LABS: CREATININE 0.6 mg/dL (0.55-1.3)
[2024-06-06] MEDS: SODIUM CHLORIDE 0.45% 500 ML IV SCH (19:23)
[2024-06-06] MEDS ORDERED: CEFTRIAXONE 1 GM/50 ML BAG ONE (19:29)
[2024-06-06] MEDS: CEFTRIAXONE 1,000 MG in DEXTROSE 5%-WATER - 50 ML IVPB ONE (19:36)
[2024-06-06] MEDS ORDERED: DOXYCYCLINE HYCLATE 100 MG VIAL ONE (19:46)
[2024-06-06] MEDS: DOXYCYCLINE INJECTION 100 MG in DEXTROSE 5%-WATER 100 ML IVPB ONE (19:56)
[2024-06-06 22:39] LABS: EPI CELLS 15 /uL (0-25.1); HYALINE CASTS 1 /uL (0-3.1); URINE APPEARANCE CLEAR; URINE BACTERIA 6 /uL (0-1359); URINE BILIRUBIN NEGATIVE (NEGATIVE); URINE COLOR DK YELLOW; URINE GLUCOSE (UA) NEGATIVE (NEGATIVE); URINE KETONE 1+ (NEGATIVE); URINE LEUK ESTERASE NEGATIVE (NEGATIVE); URINE NITRITE NEGATIVE (NEGATIVE); URINE PROTEIN 1+ (NEGATIVE); URINE RBC 10 /uL (0-23.9); URINE WBC 20 /uL (0-25.8)
[2024-06-06 23:15] LABS: URINE CRYSTALS MANY /hpf
[2024-06-07] MEDS: SODIUM CHLORIDE 0.45% 1,000 ML IV SCH (00:49)
[2024-06-07] MEDS ORDERED: PIPERACILLIN/TAZOB 4.5 GM 4.5 GM in DEXTROSE 5%-WATER 100 ML IVPB SCH (01:30)
[2024-06-07] MEDS: PIPERACILLIN/TAZOB 4.5 GM 4.5 GM in DEXTROSE 5%-WATER 100 ML IVPB SCH (02:38)
[2024-06-07] MEDS: DOXYCYCLINE INJECTION 100 MG in DEXTROSE 5%-WATER 100 ML IVPB SCH (08:10)
[2024-06-07] MEDS: AMINO ACIDS/PROTEIN HYDROLYS 30 ML LIQUID.PKT PO SCH (08:22)
[2024-06-07 08:48] LABS: BASO % 0.4 % (0-2.0); EOS % 2.5 % (0-4.5); HEMATOCRIT 31.4 % (32.4-45.2); HEMOGLOBIN 10.3 GM/dL (10.7-15.3); LYMPH % 13.5 % (8-40); MCH 28.5 pg (25.7-33.7); MCHC 32.7 g/dl (32.0-36.0); MEAN CELL VOLUME 86.9 fl (80-96); NEUT % 77.6 % (42.8-82.8); PLATELET COUNT 417 10^3/uL (134-434); RBC 3.62 M/mm3 (3.60-5.2); RDW 15.3 % (11.6-15.6); WHITE BLOOD COUNT 11.2 K/mm3 (4.0-10.0)
[2024-06-07 09:08] LABS: CHLORIDE 115 mmol/L (98-107); SODIUM 148 mmol/L (136-145)
[2024-06-07 09:09] LABS: POTASSIUM 2.7 mmol/L (3.5-5.1)
[2024-06-07 09:17] LABS: ANION GAP 8 mmol/L (4-13); CALCIUM 8.5 mg/dL (8.5-10.1); CO2 24 mmol/L (21-32)
[2024-06-07 09:18] LABS: BLOOD UREA NITROGEN 8.9 mg/dL (7-18); GLUCOSE,RANDOM 91 mg/dL (74-106); MAGNESIUM 1.8 mg/dL (1.8-2.4)
[2024-06-07 09:19] LABS: ALBUMIN 2.1 g/dl (3.4-5.0)
[2024-06-07 09:20] LABS: CREATININE 0.4 mg/dL (0.55-1.3); SGOT/AST 22 U/L (15-37); SGPT/ALT 11 U/L (13-61)
[2024-06-07 09:21] LABS: BILIRUBIN,TOTAL 0.6 mg/dL (0.2-1); PHOSPHOROUS 2.6 mg/dL (2.5-4.9)
[2024-06-07 09:22] LABS: TOT PROT 5.9 g/dl (6.4-8.2)
[2024-06-07 09:23] LABS: ALK PHOS 94 U/L (45-117)
[2024-06-07] MEDS: MEMANTINE HCL 10 MG TABLET (FP) PO SCH (10:15)
[2024-06-07] MEDS: POTASSIUM CHLORIDE ORAL LIQUID 20 MEQ/15 ML PO ONE ×2 (10:15→22:39)
[2024-06-07] MEDS: ASPIRIN COATED 81 MG TABLET.EC PO SCH (10:15)
[2024-06-07] MEDS: ENOXAPARIN NA (PORCINE) 40 MG/0.4 ML DISP.SYRIN SQ SCH (10:15)
[2024-06-07] MEDS ORDERED: SODIUM CHLORIDE 0.45% 1,000 ML IV SCH (11:01)
[2024-06-07] MEDS ORDERED: ALBUTEROL SO4 2.5/IPRATROPIUM 0.5 INH SOL 3 ML VIAL.NEB. NEB PRN (11:04)
[2024-06-07] MEDS ORDERED: DEXTROSE 5%-WATER - 1,000 ML with POTASSIUM CHLORIDE 10 MEQ IV SCH (13:30)
[2024-06-07] MEDS: KCL 10 MEQ IVPB 10 MEQ/100 ML INFUS.BAG IVPB SCH (13:33)
[2024-06-07] MEDS: POTASSIUM CHLORIDE 10 MEQ in DEXTROSE 5%-WATER - 1,000 ML IV SCH (18:54)
[2024-06-07 19:43] LABS: POTASSIUM 3.7 mmol/L (3.5-5.1)
[2024-06-07 19:46] LABS: CALCIUM 8.6 mg/dL (8.5-10.1)
[2024-06-07 19:47] LABS: BLOOD UREA NITROGEN 10.8 mg/dL (7-18)
[2024-06-07 19:50] LABS: CREATININE 0.4 mg/dL (0.55-1.3)
[2024-06-07] MEDS: traZODone HCL 50 MG TABLET (FP) PO SCH (21:53)
[2024-06-07] MEDS: ATORVASTATIN CA 40 MG TABLET (FP) PO SCH (21:53)
[2024-06-07] MEDS: MIRTAZAPINE 15 MG TABLET (FP) PO SCH (21:53)
[2024-06-07] MEDS: LATANOPROST 0.005% OPHTH SOLN 2.5ML BOTTLE OU SCH (21:59)
[2024-06-08] MEDS: PIPERACILLIN/TAZOB 3.375 GM 3.375 GM in DEXTROSE 5%-WATER - 50 ML IVPB SCH
[2024-06-08 08:39] LABS: HEMATOCRIT 30.9 % (32.4-45.2); HEMOGLOBIN 10.2 GM/dL (10.7-15.3); MCH 28.7 pg (25.7-33.7); MCHC 33.1 g/dl (32.0-36.0); MEAN CELL VOLUME 86.7 fl (80-96); MEAN PLT VOLUME 8.2 fl (7.5-11.1); PLATELET COUNT 418 10^3/uL (134-434); RBC 3.57 M/mm3 (3.60-5.2); RDW 15.5 % (11.6-15.6); WHITE BLOOD COUNT 12.7 K/mm3 (4.0-10.0)
[2024-06-08 08:58] LABS: POTASSIUM 3.5 mmol/L (3.5-5.1)
[2024-06-08 09:02] LABS: ALBUMIN 2.1 g/dl (3.4-5.0); BLOOD UREA NITROGEN 6.3 mg/dL (7-18)
[2024-06-08 09:03] LABS: MAGNESIUM 1.6 mg/dL (1.8-2.4)
[2024-06-08 09:05] LABS: CREATININE 0.4 mg/dL (0.55-1.3); PHOSPHOROUS 1.9 mg/dL (2.5-4.9)
[2024-06-08 09:07] LABS: BILIRUBIN,TOTAL 0.7 mg/dL (0.2-1); TOT PROT 6.1 g/dl (6.4-8.2)
[2024-06-08] MEDS: MAGNESIUM SULF 50% (8.12 MEQ/2 ML-1 GM VIAL) IVPB ONE ×2 (11:00→15:01)
[2024-06-08] MEDS: oxyCODONE HCL 5 MG TABLET PO ONE (11:24)
[2024-06-08 11:27] LABS: INR 1.27 (0.83-1.09); PROTHROMBIN TIME (PATIENT) 14.2 SEC (9.7-13.0)
[2024-06-08] MEDS: NAPH,MB-DB/K PH,MBDB POWDER PACKET PO ONE (13:28)
[2024-06-08] MEDS: POTASSIUM CHLORIDE 10 MEQ in DEXTROSE 5%-WATER - 1,000 ML IV SCH (14:56)
[2024-06-08] MEDS: POTASSIUM PHOSPHATE 30 MM in DEXTROSE 5%-WATER - 500 ML IVPB ONE (15:03)
[2024-06-08] MEDS: oxyCODONE HCL 5 MG TABLET PO SCH (15:46)
[2024-06-08 20:35] LABS: BF WBC & OTHER NUCLEATED CELLS 102 /mm3; BODY FLUID MACROPHAGES 2 %; BODY FLUID MESOTHELIAL 1 %; BODY FLUID MONOCYTE 15 %
[2024-06-09] MEDS: oxyCODONE HCL 5 MG TABLET PO SCH (14:12)
[2024-06-10 09:14] LABS: POTASSIUM 4.2 mmol/L (3.5-5.1)
[2024-06-10 09:31] LABS: ALBUMIN 1.8 g/dl (3.4-5.0); BLOOD UREA NITROGEN 4.3 mg/dL (7-18); CALCIUM 8.8 mg/dL (8.5-10.1)
[2024-06-10 09:35] LABS: CREATININE 0.5 mg/dL (0.55-1.3)
[2024-06-10 09:36] LABS: BILIRUBIN,TOTAL 0.7 mg/dL (0.2-1)
[2024-06-10 09:37] LABS: TOT PROT 5.5 g/dl (6.4-8.2)
[2024-06-10] MEDS: oxyCODONE HCL 5 MG TABLET PO SCH (14:06)
[2024-06-10 17:07] LABS: BODY FLUID ALBUMIN 2.1 g/dL (Not Estab.)
[2024-06-11 09:26] LABS: POTASSIUM 4.1 mmol/L (3.5-5.1)
[2024-06-11 09:28] LABS: ALBUMIN 1.8 g/dl (3.4-5.0); CALCIUM 9.1 mg/dL (8.5-10.1)
[2024-06-11 09:29] LABS: BLOOD UREA NITROGEN 4.1 mg/dL (7-18); MAGNESIUM 1.7 mg/dL (1.8-2.4)
[2024-06-11 09:31] LABS: PHOSPHOROUS 2.5 mg/dL (2.5-4.9)
[2024-06-11 09:32] LABS: CREATININE 0.5 mg/dL (0.55-1.3); HEMATOCRIT 28.9 % (32.4-45.2); HEMOGLOBIN 9.7 GM/dL (10.7-15.3); MCH 29.3 pg (25.7-33.7); MCHC 33.5 g/dl (32.0-36.0); MEAN CELL VOLUME 87.4 fl (80-96); MEAN PLT VOLUME 8.4 fl (7.5-11.1); PLATELET COUNT 418 10^3/uL (134-434); RBC 3.31 M/mm3 (3.60-5.2); RDW 15.5 % (11.6-15.6)
[2024-06-11 09:33] LABS: BILIRUBIN,TOTAL 0.6 mg/dL (0.2-1); TOT PROT 5.7 g/dl (6.4-8.2)
[2024-06-12 11:00] LABS: BASO % 0.9 % (0-2.0); EOS % 4.1 % (0-4.5); HEMOGLOBIN 9.7 GM/dL (10.7-15.3); LYMPH % 19.5 % (8-40); MCH 28.1 pg (25.7-33.7); MCHC 32.4 g/dl (32.0-36.0); MEAN CELL VOLUME 86.6 fl (80-96); MEAN PLT VOLUME 8.2 fl (7.5-11.1); MONO % 7.7 % (3.8-10.2); NEUT % 67.8 % (42.8-82.8); PLATELET COUNT 449 10^3/uL (134-434); RBC 3.47 M/mm3 (3.60-5.2); RDW 15.6 % (11.6-15.6); WHITE BLOOD COUNT 13.4 K/mm3 (4.0-10.0)
[2024-06-12 11:14] LABS: BLOOD UREA NITROGEN 4.1 mg/dL (7-18); CALCIUM 9.1 mg/dL (8.5-10.1)
[2024-06-12 11:17] LABS: CREATININE 0.5 mg/dL (0.55-1.3)
[2024-06-12] MEDS: AMINO ACIDS 4.25%/D5W 1,000 ML IV SCH (19:31)
[2024-06-13] MEDS: ACETAMINOPHEN 325 MG TABLET (FP) PO SCH (08:44)
[2024-06-13 10:14] LABS: HEMATOCRIT 29.7 % (32.4-45.2); HEMOGLOBIN 9.8 GM/dL (10.7-15.3); MCH 28.3 pg (25.7-33.7); MCHC 32.9 g/dl (32.0-36.0); MEAN CELL VOLUME 85.8 fl (80-96); MEAN PLT VOLUME 8.5 fl (7.5-11.1); PLATELET COUNT 455 10^3/uL (134-434); RBC 3.46 M/mm3 (3.60-5.2); RDW 15.4 % (11.6-15.6); WHITE BLOOD COUNT 13.2 K/mm3 (4.0-10.0)
[2024-06-13 11:02] LABS: POTASSIUM 3.9 mmol/L (3.5-5.1)
[2024-06-13 11:04] LABS: CALCIUM 8.9 mg/dL (8.5-10.1)
[2024-06-13 11:05] LABS: ALBUMIN 1.8 g/dl (3.4-5.0); MAGNESIUM 1.9 mg/dL (1.8-2.4)
[2024-06-13 11:08] LABS: CREATININE 0.5 mg/dL (0.55-1.3); PHOSPHOROUS 2.7 mg/dL (2.5-4.9)
[2024-06-13 11:09] LABS: BILIRUBIN,TOTAL 0.8 mg/dL (0.2-1)
[2024-06-13 11:10] LABS: TOT PROT 6.2 g/dl (6.4-8.2)
[2024-06-13] MEDS: fentaNYL 12mcg/hr PATCH.TD72 TD SCH (13:54)
[2024-06-13 17:15] VITALS: RESP 18
[2024-06-14 10:47] LABS: HEMATOCRIT 30.2 % (32.4-45.2); HEMOGLOBIN 9.9 GM/dL (10.7-15.3); MCH 28.8 pg (25.7-33.7); MCHC 32.9 g/dl (32.0-36.0); MEAN CELL VOLUME 87.4 fl (80-96); MEAN PLT VOLUME 8.7 fl (7.5-11.1); PLATELET COUNT 430 10^3/uL (134-434); RBC 3.46 M/mm3 (3.60-5.2); RDW 15.4 % (11.6-15.6); WHITE BLOOD COUNT 12.3 K/mm3 (4.0-10.0)
[2024-06-14 11:07] LABS: POTASSIUM 3.9 mmol/L (3.5-5.1)
[2024-06-14 11:32] LABS: CALCIUM 8.9 mg/dL (8.5-10.1); MAGNESIUM 1.9 mg/dL (1.8-2.4)
[2024-06-14 11:33] LABS: ALBUMIN 1.7 g/dl (3.4-5.0); BLOOD UREA NITROGEN 14.3 mg/dL (7-18)
[2024-06-14 11:36] LABS: PHOSPHOROUS 2.1 mg/dL (2.5-4.9)
[2024-06-14 11:37] LABS: BILIRUBIN,TOTAL 0.5 mg/dL (0.2-1); CREATININE 0.4 mg/dL (0.55-1.3); TOT PROT 6.1 g/dl (6.4-8.2)
[2024-06-15] MEDS: oxyCODONE HCL 5 MG TABLET PO PRN (18:35)
[2024-06-16 10:35] LABS: POTASSIUM 3.3 mmol/L (3.5-5.1)
[2024-06-16 10:38] LABS: CALCIUM 9.3 mg/dL (8.5-10.1)
[2024-06-16 10:39] LABS: ALBUMIN 1.8 g/dl (3.4-5.0); BLOOD UREA NITROGEN 13.8 mg/dL (7-18)
[2024-06-16 10:42] LABS: CREATININE 0.5 mg/dL (0.55-1.3)
[2024-06-16 10:44] LABS: BILIRUBIN,TOTAL 0.4 mg/dL (0.2-1)
[2024-06-16] MEDS: FENTANYL PATCH WASTE TD PRN (12:14)
[2024-06-16 13:44] VITALS: BMI 14.8
[2024-06-16] MEDS ORDERED: KCL 10 MEQ IVPB 10 MEQ/100 ML INFUS.BAG IVPB SCH (16:15)
[2024-06-16] MEDS ORDERED: POTASSIUM CHLORIDE ORAL LIQUID 20 MEQ/15 ML PO ONE (17:22)
[2024-06-16] MEDS: POTASSIUM CHLORIDE ORAL LIQUID 20 MEQ/15 ML PO ONE (17:31)
[2024-06-16 20:44] VITALS: BP 151/88; PULSE 110; TEMP 98.5
== END 2024-06-16 21:44 | disposition hospice, inpatient (51) | DRG 871 ==
LOC: JER 12:21 → JERBED 19:11 → J6S 06-07 02:31
PROVIDERS: ADMIT Internal Medicine; ATTEND Internal Medicine
PROC: 0W9B30Z Drainage of Left Pleural Cavity with Drainage Device, Percutaneous Approach (ICD-10-PCS; principal; 2024-06-08)
DX: A41.9 Sepsis, unspecified organism (principal); E43 Unspecified severe protein-calorie malnutrition; J18.9 Pneumonia, unspecified organism; E87.0 Hyperosmolality and hypernatremia; E46 Unspecified protein-calorie malnutrition; J91.0 Malignant pleural effusion; Z68.1 Body mass index [BMI] 19.9 or less, adult; F31.9 Bipolar disorder, unspecified; F03.90 Unspecified dementia, unspecified severity, without behavioral disturbance, psychotic disturbance, mood disturbance, and anxiety; I10 Essential (primary) hypertension; C50.919 Malignant neoplasm of unspecified site of unspecified female breast; D72.829 Elevated white blood cell count, unspecified; E83.52 Hypercalcemia; L89.626 Pressure-induced deep tissue damage of left heel; L89.616 Pressure-induced deep tissue damage of right heel; L89.150 Pressure ulcer of sacral region, unstageable; E78.5 Hyperlipidemia, unspecified; E87.6 Hypokalemia; D69.6 Thrombocytopenia, unspecified; K21.9 Gastro-esophageal reflux disease without esophagitis
CPT/HCPCS: 0241U-QW; 32552; 32557; 36415; 71045-TC-FY; 71046-TC-FY; 71250-TC; 76857; 80048; 80053; 81003; 82042; 82150; 82465; 82945; 83615; 83735; 83930; 83935; 84100; 84300; 84443; 84478; 85025; 85027; 85610; 87040; 87070; 87075; 87086; 87102; 87116; 87205; 87206; 87210; 88108; 88305-TC; 88341-TC; 88342-TC; 93005; 93010; 99285-25